=== PATIENT | female | born 1975 | race American Indian/Alaskan Native ===

== ENCOUNTER 2021-04-13 09:58 | Emergency (ER) | payer SELFPAY ==
[2021-04-13 10:38] VITALS: BP 119/55
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
[2021-04-13] MEDS ORDERED: KETOROLAC 30 MG/1 ML INJ IM ONE (16:34)
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
== END 2021-04-13 17:05 | disposition home or self-care (01) ==
LOC: ED 09:58
DX: S13.9XXA Sprain of joints and ligaments of unspecified parts of neck, initial encounter (principal); S80.02XA Contusion of left knee, initial encounter; Z79.899 Other long term (current) drug therapy; Z98.890 Other specified postprocedural states; V49.49XA Driver injured in collision with other motor vehicles in traffic accident, initial encounter; Y92.410 Unspecified street and highway as the place of occurrence of the external cause; Y93.89 Activity, other specified; Y99.8 Other external cause status
CPT/HCPCS: 99282; J1885